=== PATIENT | male | born 1995 | race African-American/Black ===

== ENCOUNTER 2022-07-25 12:43 | Emergency (ER) | payer SELFPAY ==
[~2022-07-25] VITALS: Ht 180.3 cm; Wt 72.5 kg
[2022-07-25 12:52] VITALS: BP 122/80
== END 2022-07-25 16:49 | disposition left against medical advice (07) ==
LOC: ER 12:43
DX: H92.02 Otalgia, left ear (principal); Z53.21 Procedure and treatment not carried out due to patient leaving prior to being seen by health care provider

== ENCOUNTER 2022-10-14 14:58 | Emergency (ER) | payer OTHER ==
[~2022-10-14] VITALS: Ht 177.8 cm; Wt 71.5 kg
[2022-10-14] MEDS ORDERED: ACETAMINOPHEN 500 MG TAB PO ONE (16:00)
[2022-10-14] MEDS ORDERED: ZOFR4T PO (16:28)
[2022-10-14] MEDS ORDERED: MECL1TAB42 PO (16:28)
[2022-10-14 17:00] VITALS: BP 129/77; PULSE 65; RESP 18; TEMP 98.2; O2SAT 97
== END 2022-10-14 17:01 | disposition home or self-care (01) ==
LOC: ER 14:58
DX: S06.0XAA Concussion with loss of consciousness status unknown, initial encounter (principal); W22.8XXA Striking against or struck by other objects, initial encounter; Y93.89 Activity, other specified; Y92.89 Other specified places as the place of occurrence of the external cause; Y99.8 Other external cause status
CPT/HCPCS: 70450

== ENCOUNTER 2022-12-02 01:37 | Emergency (ER) | payer SELFPAY ==
[~2022-12-02] VITALS: Ht 177.8 cm; Wt 67.6 kg
[~2022-12-02 01:37] MED LIST: MECL1TAB42 PO; ZOFR4T PO
[2022-12-02] MEDS ORDERED: IBUPROFEN 800 MG TAB PO ONE (03:00)
[2022-12-02 04:43] VITALS: BP 137/87; RESP 16; TEMP 98; O2SAT 98
[2022-12-02 04:44] VITALS: PULSE 62
[2022-12-02] MEDS ORDERED: DICL1GEL73 TD (04:49)
== END 2022-12-02 05:01 | disposition home or self-care (01) ==
LOC: ER 01:37
DX: M79.641 Pain in right hand (principal); Z79.899 Other long term (current) drug therapy
CPT/HCPCS: 73130